=== PATIENT | male | born 1965 | race Two or more races ===

== ENCOUNTER 2022-11-08 05:17 | Day surgery (SDC) | payer OTHER ==
[~2022-11-08] VITALS: Ht 182.9 cm; Wt 90.7 kg
[2022-11-08] MEDS ORDERED: CEPHALEXIN500 M1 PO (09:42)
[2022-11-08] MEDS ORDERED: OFLOXACIN5 M1 OTIC (09:43)
== END 2022-11-08 11:50 | disposition home or self-care (01) ==
LOC: CIR.AMB 05:17
PROVIDERS: ATTEND Otolaryngology Otology & Neurotology
DX: H74.22 Discontinuity and dislocation of left ear ossicles (principal); H90.A12 Conductive hearing loss, unilateral, left ear with restricted hearing on the contralateral side; H72.02 Central perforation of tympanic membrane, left ear